=== PATIENT | male | born 1985 | race African-American/Black ===

== ENCOUNTER 2017-06-02 04:33 | Emergency (ER) | payer OTHER ==
[~2017-06-02 04:33] MED LIST: CLINDAMYCIN HC300 MG PO; FLEXERIL PO; FLEXERIL10 M1 PO; IBUPROFEN PO; IBUPROFEN800 MG PO; MEDROL4 MG/DOSE- PO; NO MEDICATIONS; NORCO1 TAB 10/3 PO; TYLENOL #3 PO; VICODIN PO; VOLTAREN75 MG PO
== END 2017-06-02 05:25 | disposition home or self-care (01) ==
LOC: SED 04:33
DX: K05.00 Acute gingivitis, plaque induced (principal); F17.210 Nicotine dependence, cigarettes, uncomplicated
CPT/HCPCS: 99282